=== PATIENT | female | born 1940 | race Caucasian/White ===

== ENCOUNTER 2016-05-19 09:59 | Emergency (ER) | payer MEDICAID ==
[~2016-05-19] VITALS: Ht 157.5 cm; Wt 75.0 kg
[~2016-05-19 09:59] MED LIST: AMLO5TAB88 PO; ASPI-1035 PO; CALC667C PO; FOLI1TAB87 PO; HYDR-4135 PO; IBUP-2029 PO; SIMV5TAB53 PO
[2016-05-19] MEDS ORDERED: LIDOCAINE HCL 1% 20ML VIAL (Pyxis) INJ ONE (10:25)
[2016-05-19 10:44] LABS: BASOPHILS % 0.7 % (0.0-2.0); EOSINOPHILS % 2.4 % (0.0-5.0); HEMATOCRIT. 33.4 % (36.0-48.0); HEMOGLOBIN. 10.5 g/dL (12.0-16.0); LYMPHOCYTES % 13.9 % (20.0-50.0); MEAN CORPUSCULAR HEMOGLOBIN 28.9 pg (28.0-32.0); MEAN CORPUSCULAR HGB CONC 31.3 g/dL (31.0-37.0); MEAN CORPUSCULAR VOLUME 92.2 fL (81.0-99.0); MEAN PLATELET VOLUME 8.1 fl (7.4-10.4); PLATELET 140 x1000/uL (130-400); RED BLOOD CELL COUNT 3.62 mill/uL (4.2-5.4); RED CELL DISTRIBUTION WIDTH 17.2 % (11.6-14.6); WHITE BLOOD COUNT 6.5 x1000/uL (4.5-11.0)
[2016-05-19 10:52] LABS: INDEX HEMOLYSI 1 (1-3); INDEX ICTERIC 1 (1-4); INDEX LIPEMIC 1 (1-3)
[2016-05-19 10:53] LABS: CALCIUM 8.5 mg/dL (8.5-10.1); PARTIAL THROMBOPLASTIN TIME 29.9 sec (24.0-34.0); PROTHROMBIN TIME 10.7 sec
[2016-05-19 10:54] LABS: CHLORIDE 99 mEq/L (98-107)
[2016-05-19 11:05] LABS: ALANINE AMINOTRANSFERASE 15 IU/L (13-61); ALBUMIN 3.3 g/dL (3.4-5.0); ANION GAP 11; CARBON DIOXIDE 34 mEq/L (21-32); UREA NITROGEN BLOOD 24 mg/dL (7-21); eGFR 10 mL/min (>60)
[2016-05-19] MEDS ORDERED: CLONIDINE 0.1MG TABLET PO ONE (12:00)
[2016-05-19 12:48] LABS: BASOPHILS % 0.7 % (0.0-2.0); EOSINOPHILS % 2.3 % (0.0-5.0); HEMOGLOBIN. 10.7 g/dL (12.0-16.0); MEAN CORPUSCULAR HEMOGLOBIN 28.9 pg (28.0-32.0); MEAN CORPUSCULAR HGB CONC 31.5 g/dL (31.0-37.0); MEAN CORPUSCULAR VOLUME 91.6 fL (81.0-99.0); MEAN PLATELET VOLUME 8.2 fl (7.4-10.4); MONOCYTES % 8.9 % (2.0-8.0); NEUTROPHILS % 75.1 % (40.0-76.0); PLATELET 143 x1000/uL (130-400); RED BLOOD CELL COUNT 3.71 mill/uL (4.2-5.4); RED CELL DISTRIBUTION WIDTH 17.1 % (11.6-14.6); WHITE BLOOD COUNT 5.4 x1000/uL (4.5-11.0)
[2016-05-19] MEDS ORDERED: LIDOCAINE HCL/EPINEPHRINE 1%-EPI 1:100,000 20 ML VIAL ONE (13:52)
[2016-05-19 18:52] VITALS: BP 18/64
== END 2016-05-19 18:55 | disposition home or self-care (01) ==
LOC: ER 10:15
DX: T82.838A Hemorrhage due to vascular prosthetic devices, implants and grafts, initial encounter (principal); I12.0 Hypertensive chronic kidney disease with stage 5 chronic kidney disease or end stage renal disease; N18.6 End stage renal disease; I25.10 Atherosclerotic heart disease of native coronary artery without angina pectoris; E11.9 Type 2 diabetes mellitus without complications; M19.90 Unspecified osteoarthritis, unspecified site; I48.91 Unspecified atrial fibrillation; Z79.01 Long term (current) use of anticoagulants; Z99.2 Dependence on renal dialysis; Y84.1 Kidney dialysis as the cause of abnormal reaction of the patient, or of later complication, without mention of misadventure at the time of the procedure; Y92.89 Other specified places as the place of occurrence of the external cause
CPT/HCPCS: 12001; 36415; 80053; 85025; 85610; 85730; 99284; J3490; X7700; Z7610

== ENCOUNTER 2016-08-31 19:54 | Emergency (ER) | payer MEDICAID ==
[~2016-08-31] VITALS: Ht 152.4 cm; Wt 71.0 kg
[~2016-08-31 19:54] MED LIST changes: -ASPI-1035 PO; +ASPI-1158 PO
[2016-08-31] MEDS ORDERED: TRAMADOL 50MG TABLET PO ONE (22:15)
[2016-08-31 23:59] VITALS: BP 164/86
== END 2016-09-01 00:39 | disposition home or self-care (01) ==
LOC: ER 21:34
DX: S80.02XA Contusion of left knee, initial encounter (principal); S50.11XA Contusion of right forearm, initial encounter; S60.212A Contusion of left wrist, initial encounter; S80.12XA Contusion of left lower leg, initial encounter; E11.22 Type 2 diabetes mellitus with diabetic chronic kidney disease; I12.0 Hypertensive chronic kidney disease with stage 5 chronic kidney disease or end stage renal disease; N18.6 End stage renal disease; Z99.2 Dependence on renal dialysis; Z79.82 Long term (current) use of aspirin; W01.0XXA Fall on same level from slipping, tripping and stumbling without subsequent striking against object, initial encounter; Y93.89 Activity, other specified; Y92.018 Other place in single-family (private) house as the place of occurrence of the external cause
CPT/HCPCS: 73552; 73590; 99284; Z7610

== ENCOUNTER 2016-12-01 03:41 | Inpatient (IN) | payer MEDICAID ==
[~2016-12-01] VITALS: Ht 152.4 cm; Wt 71.7 kg
[2016-12-01 04:56] LABS: BASOPHILS % 1.3 % (0.0-2.0); HEMOGLOBIN. 8.9 g/dL (12.0-16.0); LYMPHOCYTES % 14.3 % (20.0-50.0); MEAN CORPUSCULAR HEMOGLOBIN 27.6 pg (28.0-32.0); MEAN CORPUSCULAR VOLUME 89.7 fL (81.0-99.0); MEAN PLATELET VOLUME 8.6 fl (7.4-10.4); MONOCYTES % 7.5 % (2.0-8.0); NEUTROPHILS % 70.9 % (40.0-76.0); PLATELET 161 x1000/uL (130-400); RED BLOOD CELL COUNT 3.23 mill/uL (4.2-5.4); RED CELL DISTRIBUTION WIDTH 19.4 % (11.6-14.6)
[2016-12-01 05:02] LABS: PROTHROMBIN TIME 10.8 sec (9.4-11.6)
[2016-12-01 05:09] LABS: CARBON DIOXIDE 28 mEq/L (21-32); CHLORIDE 101 mEq/L (98-107); TROPONIN I < 0.02 ng/mL (0.00-0.04)
[2016-12-01] MEDS ORDERED: METHYLPREDNISOLONE SOD SUCC 125 MG/2 ML VIAL IV STA (06:18)
[2016-12-01] MEDS ORDERED: ALBUTEROL (0.083%) 2.5MG/3ML NEB HHN STA (06:18)
[2016-12-01] MEDS ORDERED: IPRATROPIUM BROMIDE (0.02%) 0.5MG/2.5ML NEB HHN STA (06:18)
[2016-12-01] MEDS ORDERED: LEVOFLOXACIN 750MG PREMIX 150 ML IV ONE (06:30)
[2016-12-01] MEDS ORDERED: SODIUM POLYSTYRENE SULFONATE 15 G/60 ML BOT PO ONE (06:30)
[2016-12-01] MEDS ORDERED: DEXTROSE 50% WATER 50ML SYRINGE IV ONE (06:30)
[2016-12-01] MEDS ORDERED: INSULIN REGULAR (HUMULIN R) 300UNITS/3ML IV ONE (06:30)
[2016-12-01] MEDS ORDERED: SODIUM BICARBONATE 8.4% 1 MEQ/ML 50ML SYR IV ONE (06:30)
[2016-12-01] MEDS ORDERED: IPRATROPIUM BROMIDE (0.02%) 0.5MG/2.5ML NEB ONE (06:42)
[2016-12-01 09:15] VITALS: BP 188/64
[2016-12-01] MEDS ORDERED: IBUPROFEN 600MG TABLET PO PRN (11:45)
[2016-12-01] MEDS ORDERED: GLIM2TAB2 PO (11:52)
[2016-12-01] MEDS ORDERED: DOCU-138 PO (11:52)
[2016-12-01] MEDS ORDERED: APIX2.5T PO (11:52)
[2016-12-01] MEDS ORDERED: DILT240C91 PO (11:53)
[2016-12-01] MEDS ORDERED: LABE100T PO (11:53)
[2016-12-01] MEDS ORDERED: REN800 PO (11:54)
[2016-12-01 12:00] VITALS: BP 202/67
[2016-12-01] MEDS ORDERED: IPRATROPIUM/ALBUTEROL 0.5-3(2.5)MG/3ML NEB HHN PRN (12:15)
[2016-12-01] MEDS ORDERED: DEXTROSE 50% WATER 50ML SYRINGE IV PRN (12:15)
[2016-12-01] MEDS: BLOOD SUGAR DIAGNOSTIC STRIP TEST SCH ×3 (12:36→20:29)
[2016-12-01] MEDS: INSULIN LISPRO 100 UNITS/ML SUBCUT SCH ×3 (12:40→20:40)
[2016-12-01] MEDS ORDERED: DILTIAZEM HCL 240MG ER (24HR) PO SCH (13:00)
[2016-12-01] MEDS: SEVELAMER CARBONATE 800 MG TABLET PO SCH ×2 (13:07→17:19)
[2016-12-01] MEDS: LABETALOL HCL 200MG TABLET PO SCH (13:08)
[2016-12-01] MEDS: FOLIC ACID/VITAMIN B COMP W-C TABLET PO SCH (13:08)
[2016-12-01] MEDS: CLONIDINE 0.1MG TABLET PO PRN (13:08)
[2016-12-01] MEDS: IPRATROPIUM/ALBUTEROL 0.5-3(2.5)MG/3ML NEB HHN SCH ×2 (15:20→20:15)
[2016-12-01 16:00] VITALS: BP 170/60
[2016-12-01] MEDS: GLIMEPIRIDE 2MG TABLET PO SCH (17:19)
[2016-12-01 20:00] VITALS: BP 146/64
[2016-12-01] MEDS ORDERED: SIMVASTATIN 5 MG PO SCH (21:00)
[2016-12-01] MEDS ORDERED: EPOETIN ALFA 10000UNITS/ML VIAL SUBCUT SCH (21:00)
[2016-12-02] VITALS (7 sets, daily range): BP systolic 146–169; BP diastolic 51–62
[2016-12-02] MEDS: IPRATROPIUM/ALBUTEROL 0.5-3(2.5)MG/3ML NEB HHN SCH ×6 (00:13→20:30)
[2016-12-02] MEDS: APIXABAN 2.5 MG TABLET PO SCH ×3 (01:43→16:41)
[2016-12-02] MEDS: CLONIDINE 0.1MG TABLET PO SCH ×2 (01:43→06:42)
[2016-12-02] MEDS: LABETALOL HCL 200MG TABLET PO SCH ×3 (01:43→09:00)
[2016-12-02] MEDS: INSULIN LISPRO 100 UNITS/ML SUBCUT SCH ×4 (06:41→21:57)
[2016-12-02] MEDS: BLOOD SUGAR DIAGNOSTIC STRIP TEST SCH ×4 (06:42→21:57)
[2016-12-02] MEDS: GLIMEPIRIDE 2MG TABLET PO SCH ×2 (06:42→16:41)
[2016-12-02 07:08] LABS: BASOPHILS % 0.2 % (0.0-2.0); HEMATOCRIT. 29.1 % (36.0-48.0); LYMPHOCYTES % 9.2 % (20.0-50.0); MEAN CORPUSCULAR HEMOGLOBIN 27.5 pg (28.0-32.0); MEAN CORPUSCULAR VOLUME 88.9 fL (81.0-99.0); MEAN PLATELET VOLUME 8.6 fl (7.4-10.4); MONOCYTES % 1.4 % (2.0-8.0); NEUTROPHILS % 89.2 % (40.0-76.0); PLATELET 123 x1000/uL (130-400); RED BLOOD CELL COUNT 3.27 mill/uL (4.2-5.4); RED CELL DISTRIBUTION WIDTH 19.7 % (11.6-14.6)
[2016-12-02] MEDS: FOLIC ACID/VITAMIN B COMP W-C TABLET PO SCH (08:53)
[2016-12-02] MEDS: SEVELAMER CARBONATE 800 MG TABLET PO SCH ×3 (08:54→16:41)
[2016-12-02] MEDS: DILTIAZEM HCL 240MG ER (24HR) PO SCH (08:55)
[2016-12-02] MEDS ORDERED: SODIUM POLYSTYRENE SULFONATE 15 G/60 ML BOT PO SCH (10:00)
[2016-12-02] MEDS: IRON SUCROSE COMPLEX 100 MG/5 ML ML IV SCH (12:19)
[2016-12-02] MEDS: CLONIDINE 0.2MG TABLET PO SCH ×2 (13:54→21:54)
[2016-12-02] MEDS ORDERED: GUAIFENESIN 200MG/10ML SUGAR FREE UDC PO PRN (16:15)
[2016-12-02] MEDS: CLONIDINE 0.1MG TABLET PO PRN (16:41)
[2016-12-03] VITALS (7 sets, daily range): BP systolic 136–188; BP diastolic 60–68
[2016-12-03] MEDS: IPRATROPIUM/ALBUTEROL 0.5-3(2.5)MG/3ML NEB HHN SCH ×6 (00:17→19:50)
[2016-12-03] MEDS: BLOOD SUGAR DIAGNOSTIC STRIP TEST SCH ×3 (05:43→16:20)
[2016-12-03] MEDS: INSULIN LISPRO 100 UNITS/ML SUBCUT SCH ×3 (05:43→16:42)
[2016-12-03] MEDS: GLIMEPIRIDE 2MG TABLET PO SCH ×2 (06:30→17:44)
[2016-12-03] MEDS: CLONIDINE 0.2MG TABLET PO SCH ×2 (06:30→14:00)
[2016-12-03 06:54] LABS: BASOPHILS % 0.6 % (0.0-2.0); HEMATOCRIT. 29.5 % (36.0-48.0); HEMOGLOBIN. 9.2 g/dL (12.0-16.0); LYMPHOCYTES % 14.1 % (20.0-50.0); MEAN CORPUSCULAR HEMOGLOBIN 27.6 pg (28.0-32.0); MEAN CORPUSCULAR VOLUME 88.7 fL (81.0-99.0); MEAN PLATELET VOLUME 8.4 fl (7.4-10.4); MONOCYTES % 5.9 % (2.0-8.0); NEUTROPHILS % 79.4 % (40.0-76.0); PLATELET 124 x1000/uL (130-400); RED BLOOD CELL COUNT 3.32 mill/uL (4.2-5.4); RED CELL DISTRIBUTION WIDTH 19.5 % (11.6-14.6)
[2016-12-03 07:51] LABS: CHLORIDE 95 mEq/L (98-107)
[2016-12-03 08:02] LABS: CARBON DIOXIDE 27 mEq/L (21-32); PHOSPHORUS 7.3 mg/dL (2.5-4.9)
[2016-12-03] MEDS: APIXABAN 2.5 MG TABLET PO SCH ×3 (08:10→18:41)
[2016-12-03] MEDS: FOLIC ACID/VITAMIN B COMP W-C TABLET PO SCH (08:10)
[2016-12-03] MEDS: SEVELAMER CARBONATE 800 MG TABLET PO SCH ×3 (08:10→17:44)
[2016-12-03] MEDS: IRON SUCROSE COMPLEX 100 MG/5 ML ML IV SCH (08:13)
[2016-12-03] MEDS: DILTIAZEM HCL 240MG ER (24HR) PO SCH ×2 (08:14→09:00)
[2016-12-03] MEDS ORDERED: LEVOFLOXACIN 500MG PREMIX 100 ML IV SCH ×2 (09:00→11:00)
[2016-12-03] MEDS: CALCIUM ACETATE 667MG CAPSULE PO SCH ×3 (09:49→17:44)
[2016-12-03] MEDS: CLONIDINE 0.1MG TABLET PO PRN (12:13)
== END 2016-12-03 20:30 | disposition home or self-care (01) | DRG 140 ==
LOC: ER 04:53 → 8WST 06:17 → EDBEDREQ 06:20 → ENRESERV 06:55
PROVIDERS: ADMIT Internal Medicine; ATTEND Internal Medicine
DX: J44.0 Chronic obstructive pulmonary disease with (acute) lower respiratory infection (principal); J96.00 Acute respiratory failure, unspecified whether with hypoxia or hypercapnia; I13.2 Hypertensive heart and chronic kidney disease with heart failure and with stage 5 chronic kidney disease, or end stage renal disease; J18.9 Pneumonia, unspecified organism; N18.6 End stage renal disease; E11.22 Type 2 diabetes mellitus with diabetic chronic kidney disease; I95.9 Hypotension, unspecified; I48.91 Unspecified atrial fibrillation; I50.9 Heart failure, unspecified; R00.1 Bradycardia, unspecified; J44.1 Chronic obstructive pulmonary disease with (acute) exacerbation; Z96.652 Presence of left artificial knee joint; E87.5 Hyperkalemia; D63.8 Anemia in other chronic diseases classified elsewhere; M19.90 Unspecified osteoarthritis, unspecified site; E66.9 Obesity, unspecified; Z79.01 Long term (current) use of anticoagulants; Z79.82 Long term (current) use of aspirin; Z79.84 Long term (current) use of oral hypoglycemic drugs; Z99.2 Dependence on renal dialysis; Z79.899 Other long term (current) drug therapy; Z68.30 Body mass index [BMI] 30.0-30.9, adult
CPT/HCPCS: 36415; 71010; 80048; 80053; 82962; 83540; 83550; 83605; 83735; 83880; 84100; 84484; 85025; 85610; 87040; 87804; 93005; 93306; 94640; 96365; 96375; 99285; J0885; J1815; J1956; J2930; J3490; J7030; J7040; J7611; J7620

== ENCOUNTER 2017-07-14 21:13 | Emergency (ER) | payer MEDICAID ==
[~2017-07-14] VITALS: Ht 165.1 cm; Wt 91.0 kg
[~2017-07-14 21:13] MED LIST changes: +APIX2.5T PO; +DOCU-138 PO; +GLIM2TAB2 PO; +REN800 PO
[2017-07-14] MEDS ORDERED: TRAMADOL 50MG TABLET PO ONE (22:00)
[2017-07-14 22:51] VITALS: BP 120/50
== END 2017-07-14 22:51 | disposition home or self-care (01) ==
LOC: ER 22:08
DX: N99.89 Other postprocedural complications and disorders of genitourinary system (principal); S16.1XXA Strain of muscle, fascia and tendon at neck level, initial encounter; E11.22 Type 2 diabetes mellitus with diabetic chronic kidney disease; I12.0 Hypertensive chronic kidney disease with stage 5 chronic kidney disease or end stage renal disease; N18.6 End stage renal disease; Z99.2 Dependence on renal dialysis; Z79.82 Long term (current) use of aspirin
CPT/HCPCS: 99283

== ENCOUNTER 2019-03-29 13:45 | Inpatient (IN) | payer MEDICAID ==
[~2019-03-29] VITALS: Ht 152.4 cm; Wt 62.2 kg
[~2019-03-29 13:45] MED LIST changes: +CLON0.1T PO; -GLIM2TAB2 PO; +GLIP5TAB12; -IBUP-2029 PO; -SIMV5TAB53 PO; +SIMV5TAB58 PO
[2019-03-29 17:51] LABS: BASOPHILS % 1.1 % (0.0-2.0); EOSINOPHILS % 1.8 % (0.0-5.0); HEMATOCRIT. 39.6 % (36.0-48.0); LYMPHOCYTES % 17.5 % (20.0-50.0); MEAN CORPUSCULAR HEMOGLOBIN 32.9 pg (28.0-32.0); MEAN CORPUSCULAR VOLUME 100.2 fL (81.0-99.0); MONOCYTES % 8.8 % (2.0-8.0); NEUTROPHILS % 70.8 % (40.0-76.0); PLATELET 101 x1000/uL (130-400); RED BLOOD CELL COUNT 3.95 mill/uL (4.2-5.4); RED CELL DISTRIBUTION WIDTH 15.2 % (11.6-14.6)
[2019-03-29 17:53] LABS: CHLORIDE 99 mEq/L (98-107)
[2019-03-29 17:59] LABS: INR 0.9; PARTIAL THROMBOPLASTIN TIME 28.7 sec (23.4-31.0); PROTHROMBIN TIME 9.8 sec (9.6-11.0)
[2019-03-29] MEDS ORDERED: SODIUM POLYSTYRENE SULFONATE 15 G/60 ML BOT PO ONE (18:45)
[2019-03-29] MEDS ORDERED: CALCIUM CHLORIDE 1GM/10ML SYR IV ONE (18:45)
[2019-03-29] MEDS ORDERED: SODIUM BICARBONATE 8.4% 1 MEQ/ML 50ML SYR IV ONE (18:45)
[2019-03-29] MEDS ORDERED: IPRATROPIUM/ALBUTEROL 0.5-3(2.5)MG/3ML NEB HHN PRN (19:30)
[2019-03-29] MEDS ORDERED: DIPHENHYDRAMINE 50MG/ML VIAL IV PRN (19:30)
[2019-03-29] MEDS ORDERED: ONDANSETRON HCL 4MG/2ML INJ IV PRN (19:30)
[2019-03-29 19:40] LABS: PHOSPHORUS 5.2 mg/dL (2.5-4.9)
[2019-03-30 05:30] LABS: BASOPHILS % 1.3 % (0.0-2.0); EOSINOPHILS % 1.8 % (0.0-5.0); HEMATOCRIT. 38.2 % (36.0-48.0); HEMOGLOBIN. 12.3 g/dL (12.0-16.0); LYMPHOCYTES % 22.1 % (20.0-50.0); MEAN CORPUSCULAR HEMOGLOBIN 32.4 pg (28.0-32.0); MEAN CORPUSCULAR VOLUME 100.4 fL (81.0-99.0); MEAN PLATELET VOLUME 10.3 fl (7.4-10.4); MONOCYTES % 9.2 % (2.0-8.0); NEUTROPHILS % 65.6 % (40.0-76.0); PLATELET 95 x1000/uL (130-400); RED BLOOD CELL COUNT 3.81 mill/uL (4.2-5.4); RED CELL DISTRIBUTION WIDTH 14.9 % (11.6-14.6)
[2019-03-30 05:35] LABS: CHLORIDE 99 mEq/L (98-107)
[2019-03-30 05:41] LABS: LDL CHOLESTEROL 40 mg/dL (5-100)
[2019-03-30 05:42] LABS: HDL CHOLESTEROL 56 mg/dL (40-59)
[2019-03-30] MEDS: OMEPRAZOLE 20MG CAPSULE EXTENDED RELEASE PO SCH (10:45)
[2019-03-30] MEDS: CLONIDINE 0.1MG TABLET PO PRN ×2 (11:26→18:05)
[2019-03-30 11:48] LABS: TOTAL IRON BINDING CAPACITY 255 ug/dL (250-450)
[2019-03-30 12:22] LABS: VITAMIN B12 SERUM 1772 pg/mL (211-911)
[2019-03-30 13:19] LABS: FERRITIN 430 ng/mL (10-291)
[2019-03-30 17:00] VITALS: BP 183/59
[2019-03-30] MEDS ORDERED: DILT180T11 MT (17:23)
[2019-03-30] MEDS ORDERED: VALS1TAB75 MT (17:23)
[2019-03-30 17:30] VITALS: BP 183/59
[2019-03-30] MEDS ORDERED: DEXTROSE 50% WATER 50ML SYRINGE IV PRN ×2 (18:34→18:35)
[2019-03-30 19:58] LABS: HEMATOCRIT 36.8 % (36.0-48.0); HEMOGLOBIN 12.1 g/dL (12.0-16.0)
[2019-03-30 20:00] VITALS: BP 146/56
[2019-03-30] MEDS: BLOOD SUGAR DIAGNOSTIC STRIP TEST SCH (20:44)
[2019-03-30] MEDS: INSULIN LISPRO 100 UNITS/ML SUBCUT SCH (22:03)
[2019-03-31] VITALS: BP 101/45
[2019-03-31 04:00] VITALS: BP 135/53
[2019-03-31] MEDS: BLOOD SUGAR DIAGNOSTIC STRIP TEST SCH ×4 (06:30→21:00)
[2019-03-31] MEDS: OMEPRAZOLE 20MG CAPSULE EXTENDED RELEASE PO SCH (06:32)
[2019-03-31 07:26] LABS: BASOPHILS % 0.8 % (0.0-2.0); EOSINOPHILS % 1.8 % (0.0-5.0); HEMATOCRIT. 35.3 % (36.0-48.0); HEMOGLOBIN. 11.7 g/dL (12.0-16.0); LYMPHOCYTES % 12.3 % (20.0-50.0); MEAN CORPUSCULAR VOLUME 99.5 fL (81.0-99.0); MEAN PLATELET VOLUME 9.9 fl (7.4-10.4); MONOCYTES % 10.1 % (2.0-8.0); PLATELET 82 x1000/uL (130-400); RED BLOOD CELL COUNT 3.55 mill/uL (4.2-5.4); RED CELL DISTRIBUTION WIDTH 14.9 % (11.6-14.6)
[2019-03-31] MEDS: INSULIN LISPRO 100 UNITS/ML SUBCUT SCH ×4 (07:50→21:56)
[2019-03-31 09:00] VITALS: BP 141/63
[2019-03-31] MEDS: AMLODIPINE 5MG TABLET PO SCH (09:31)
[2019-03-31] MEDS: FOLIC ACID/VITAMIN B COMP W-C TABLET PO SCH (09:31)
[2019-03-31 12:00] VITALS: BP 153/60
[2019-03-31] MEDS ORDERED: SODIUM BICARBONATE 4% (2.4MEQ) 5ML VIAL IV ONE (12:59)
[2019-03-31] MEDS ORDERED: LIDOCAINE HCL 1% 20ML VIAL (Pyxis) INJ ONE (12:59)
[2019-03-31] MEDS: SEVELAMER CARBONATE 800 MG TABLET PO SCH ×2 (13:48→18:30)
[2019-03-31 16:00] VITALS: BP 155/60
[2019-03-31 18:30] VITALS: BP 181/61
[2019-03-31] MEDS: CLONIDINE 0.1MG TABLET PO PRN (18:39)
[2019-04-01] MEDS: BLOOD SUGAR DIAGNOSTIC STRIP TEST SCH ×4 (06:36→20:35)
[2019-04-01] MEDS: OMEPRAZOLE 20MG CAPSULE EXTENDED RELEASE PO SCH ×2 (07:02→20:35)
[2019-04-01 07:12] LABS: BASOPHILS % 0.8 % (0.0-2.0); EOSINOPHILS % 2.1 % (0.0-5.0); HEMATOCRIT. 34.5 % (36.0-48.0); HEMOGLOBIN. 11.5 g/dL (12.0-16.0); LYMPHOCYTES % 18.9 % (20.0-50.0); MEAN CORPUSCULAR HEMOGLOBIN 32.8 pg (28.0-32.0); MEAN CORPUSCULAR VOLUME 98.6 fL (81.0-99.0); MEAN PLATELET VOLUME 9.9 fl (7.4-10.4); MONOCYTES % 8.9 % (2.0-8.0); NEUTROPHILS % 69.3 % (40.0-76.0); PLATELET 79 x1000/uL (130-400)
[2019-04-01] MEDS: INSULIN LISPRO 100 UNITS/ML SUBCUT SCH ×4 (07:28→20:57)
[2019-04-01 07:58] VITALS: BP 189/58
[2019-04-01] MEDS: FOLIC ACID/VITAMIN B COMP W-C TABLET PO SCH (08:05)
[2019-04-01] MEDS: SEVELAMER CARBONATE 800 MG TABLET PO SCH ×3 (08:05→18:24)
[2019-04-01] MEDS: CLONIDINE 0.1MG TABLET PO PRN (08:05)
[2019-04-01] MEDS: AMLODIPINE 5MG TABLET PO SCH (08:10)
[2019-04-01 09:05] VITALS: BP 138/52
[2019-04-01 12:00] VITALS: BP 150/60
[2019-04-01 16:00] VITALS: BP 134/63
[2019-04-01 20:00] VITALS: BP 140/52
[2019-04-01] MEDS: ACETAMINOPHEN 325MG TABLET PO PRN (20:52)
[2019-04-01] MEDS ORDERED: HYDRALAZINE HCL 25MG TABLET PO SCH (21:00)
[2019-04-01] MEDS ORDERED: HYDRALAZINE HCL 50MG TABLET PO SCH (21:00)
[2019-04-02 00:20] VITALS: BP 138/56
[2019-04-02 04:00] VITALS: BP 139/53
[2019-04-02] MEDS: BLOOD SUGAR DIAGNOSTIC STRIP TEST SCH ×4 (06:03→20:08)
[2019-04-02] MEDS: INSULIN LISPRO 100 UNITS/ML SUBCUT SCH ×4 (06:03→20:17)
[2019-04-02 06:07] LABS: BASOPHILS % 0.9 % (0.0-2.0); EOSINOPHILS % 2.4 % (0.0-5.0); HEMATOCRIT. 36.4 % (36.0-48.0); HEMOGLOBIN. 11.9 g/dL (12.0-16.0); LYMPHOCYTES % 18.2 % (20.0-50.0); MEAN CORPUSCULAR HEMOGLOBIN 32.4 pg (28.0-32.0); MEAN CORPUSCULAR VOLUME 98.8 fL (81.0-99.0); MEAN PLATELET VOLUME 10.2 fl (7.4-10.4); MONOCYTES % 11.5 % (2.0-8.0); PLATELET 85 x1000/uL (130-400); RED BLOOD CELL COUNT 3.69 mill/uL (4.2-5.4); RED CELL DISTRIBUTION WIDTH 14.6 % (11.6-14.6)
[2019-04-02] MEDS: SEVELAMER CARBONATE 800 MG TABLET PO SCH ×3 (06:34→18:29)
[2019-04-02] MEDS: OMEPRAZOLE 20MG CAPSULE EXTENDED RELEASE PO SCH ×2 (06:35→20:07)
[2019-04-02 08:00] VITALS: BP 169/68
[2019-04-02] MEDS: AMLODIPINE 5MG TABLET PO SCH (09:24)
[2019-04-02] MEDS: LOSARTAN POTASSIUM 100 MG TABLET PO SCH (09:24)
[2019-04-02] MEDS: FOLIC ACID/VITAMIN B COMP W-C TABLET PO SCH (09:25)
[2019-04-02 12:01] VITALS: BP 115/46
[2019-04-02 16:00] VITALS: BP 135/57
[2019-04-02 20:00] VITALS: BP 166/61
[2019-04-02] MEDS: ACETAMINOPHEN 325MG TABLET PO PRN (20:07)
[2019-04-02] MEDS: CLONIDINE 0.1MG TABLET PO PRN (20:07)
[2019-04-03 00:24] VITALS: BP 136/51
[2019-04-03 04:00] VITALS: BP 148/66
[2019-04-03] MEDS: INSULIN LISPRO 100 UNITS/ML SUBCUT SCH ×4 (06:23→20:54)
[2019-04-03] MEDS: BLOOD SUGAR DIAGNOSTIC STRIP TEST SCH ×4 (06:23→20:54)
[2019-04-03] MEDS: OMEPRAZOLE 20MG CAPSULE EXTENDED RELEASE PO SCH ×2 (06:41→20:50)
[2019-04-03] MEDS: SEVELAMER CARBONATE 800 MG TABLET PO SCH ×3 (06:41→18:36)
[2019-04-03 06:51] LABS: BASOPHILS % 0.7 % (0.0-2.0); EOSINOPHILS % 2.6 % (0.0-5.0); HEMATOCRIT. 35.1 % (36.0-48.0); HEMOGLOBIN. 11.6 g/dL (12.0-16.0); LYMPHOCYTES % 20.6 % (20.0-50.0); MEAN CORPUSCULAR HEMOGLOBIN 32.6 pg (28.0-32.0); MEAN CORPUSCULAR VOLUME 98.9 fL (81.0-99.0); MEAN PLATELET VOLUME 10.1 fl (7.4-10.4); MONOCYTES % 10.8 % (2.0-8.0); NEUTROPHILS % 65.3 % (40.0-76.0); PLATELET 80 x1000/uL (130-400); RED BLOOD CELL COUNT 3.55 mill/uL (4.2-5.4); RED CELL DISTRIBUTION WIDTH 14.6 % (11.6-14.6)
[2019-04-03 08:00] VITALS: BP 183/62
[2019-04-03] MEDS: LOSARTAN POTASSIUM 100 MG TABLET PO SCH (08:55)
[2019-04-03] MEDS: AMLODIPINE 5MG TABLET PO SCH (08:55)
[2019-04-03] MEDS: FOLIC ACID/VITAMIN B COMP W-C TABLET PO SCH (08:56)
[2019-04-03 12:00] VITALS: BP 145/65
[2019-04-03 16:00] VITALS: BP 178/66
[2019-04-03] MEDS ORDERED: SORBITOL 70% SOLN 30ML PO SCH ×2 (16:00→20:00)
[2019-04-03 17:08] LABS: CREATINE KINASE 24 IU/L (26-192)
[2019-04-03 17:11] LABS: CREATINE KINASE MB FRACTION 1.2 ng/mL (0.5-3.6)
[2019-04-03 17:13] LABS: T4 FREE 1.17 ng/dL (0.76-1.46)
[2019-04-03 20:43] VITALS: BP 133/62
[2019-04-03] MEDS: ACETAMINOPHEN 325MG TABLET PO PRN (22:34)
[2019-04-04 00:52] VITALS: BP 128/65
[2019-04-04 01:27] LABS: CREATINE KINASE 31 IU/L (26-192)
[2019-04-04 01:30] LABS: CREATINE KINASE MB FRACTION 1.3 ng/mL (0.5-3.6)
[2019-04-04 04:00] VITALS: BP 159/74
[2019-04-04] MEDS: BLOOD SUGAR DIAGNOSTIC STRIP TEST SCH ×4 (07:06→21:00)
[2019-04-04] MEDS: OMEPRAZOLE 20MG CAPSULE EXTENDED RELEASE PO SCH ×2 (07:06→22:08)
[2019-04-04 07:16] LABS: BASOPHILS % 0.7 % (0.0-2.0); EOSINOPHILS % 1.3 % (0.0-5.0); HEMATOCRIT. 37.7 % (36.0-48.0); HEMOGLOBIN. 12.7 g/dL (12.0-16.0); LYMPHOCYTES % 9.2 % (20.0-50.0); MEAN CORPUSCULAR HEMOGLOBIN 33.5 pg (28.0-32.0); MEAN CORPUSCULAR VOLUME 99.3 fL (81.0-99.0); MEAN PLATELET VOLUME 10.2 fl (7.4-10.4); MONOCYTES % 8.9 % (2.0-8.0); NEUTROPHILS % 79.9 % (40.0-76.0); PLATELET 95 x1000/uL (130-400); RED CELL DISTRIBUTION WIDTH 14.6 % (11.6-14.6)
[2019-04-04 07:30] LABS: CHLORIDE 111 mEq/L (98-107)
[2019-04-04] MEDS: INSULIN LISPRO 100 UNITS/ML SUBCUT SCH ×4 (07:35→22:15)
[2019-04-04] MEDS: SEVELAMER CARBONATE 800 MG TABLET PO SCH ×3 (07:35→18:35)
[2019-04-04 07:40] LABS: CREATINE KINASE 45 IU/L (26-192)
[2019-04-04 07:42] LABS: CREATINE KINASE MB FRACTION 1.1 ng/mL (0.5-3.6)
[2019-04-04 08:00] VITALS: BP 166/66
[2019-04-04] MEDS ORDERED: NA PHOS,M-B/NA PHOS,DI-BA ENEMA 118ML PR SCH ×2 (09:30→12:30)
[2019-04-04] MEDS: FOLIC ACID/VITAMIN B COMP W-C TABLET PO SCH (09:40)
[2019-04-04] MEDS: LOSARTAN POTASSIUM 100 MG TABLET PO SCH (09:40)
[2019-04-04] MEDS: AMLODIPINE 5MG TABLET PO SCH (09:40)
[2019-04-04] MEDS: ACETAMINOPHEN 325MG TABLET PO PRN ×2 (09:49→22:08)
[2019-04-04 12:00] VITALS: BP 136/54
[2019-04-04] MEDS ORDERED: HYDRALAZINE 20MG/ML VIAL IV PRN (12:45)
[2019-04-04] MEDS ORDERED: SIMETHICONE 40 MG/0.6 ML 30ML ONE (16:07)
[2019-04-04] MEDS ORDERED: MIDAZOLAM HCL 5 MG/5 ML VIAL ONE (16:07)
[2019-04-04] MEDS ORDERED: FENTANYL CITRATE/PF 50MCG/ML 2ML VIAL ONE (16:08)
[2019-04-04] MEDS ORDERED: FENTANYL CITRATE/PF 50MCG/ML 2ML VIAL IV PRN (16:23)
[2019-04-04] MEDS ORDERED: MIDAZOLAM HCL 5 MG/5 ML VIAL IV PRN (16:24)
[2019-04-04 18:19] VITALS: BP 145/61
[2019-04-04 20:00] VITALS: BP 149/60
[2019-04-05 00:39] VITALS: BP 144/62
[2019-04-05 04:00] VITALS: BP 120/50
[2019-04-05] MEDS: BLOOD SUGAR DIAGNOSTIC STRIP TEST SCH ×2 (06:34→12:11)
[2019-04-05] MEDS: OMEPRAZOLE 20MG CAPSULE EXTENDED RELEASE PO SCH (06:34)
[2019-04-05 08:00] VITALS: BP 154/60
[2019-04-05] MEDS: AMLODIPINE 5MG TABLET PO SCH (08:29)
[2019-04-05] MEDS: SEVELAMER CARBONATE 800 MG TABLET PO SCH ×2 (08:29→13:29)
[2019-04-05] MEDS: LOSARTAN POTASSIUM 100 MG TABLET PO SCH (08:29)
[2019-04-05] MEDS: FOLIC ACID/VITAMIN B COMP W-C TABLET PO SCH (08:29)
[2019-04-05] MEDS: INSULIN LISPRO 100 UNITS/ML SUBCUT SCH ×2 (08:34→13:26)
[2019-04-05 12:00] VITALS: BP 155/55
[2019-04-05] MEDS ORDERED: SEVE800T8 PO (12:18)
[2019-04-05] MEDS ORDERED: APIX2.5T PO (12:18)
[2019-04-05] MEDS ORDERED: OMEP20CA14 PO (12:18)
[2019-04-05 12:19] VITALS: BP 155/55
[2019-04-28] MEDS ORDERED: LOSA100T32 PO (18:26)
== END 2019-04-05 15:30 | disposition home or self-care (01) | DRG 253 ==
LOC: ER 13:45 → 6WST 18:55 → EDBEDREQ 18:58 → CANRESERV 03-30 12:34 → ENRESERV 03-30 12:34
PROVIDERS: ADMIT Internal Medicine; ATTEND Internal Medicine
PROC: 5A1D70Z Performance of Urinary Filtration, Intermittent, Less than 6 Hours Per Day (ICD-10-PCS; 2019-03-30)
PROC: 5A1D70Z Performance of Urinary Filtration, Intermittent, Less than 6 Hours Per Day (ICD-10-PCS; 2019-03-31)
PROC: 5A1D70Z Performance of Urinary Filtration, Intermittent, Less than 6 Hours Per Day (ICD-10-PCS; 2019-04-03)
PROC: 0DBH8ZZ Excision of Cecum, Via Natural or Artificial Opening Endoscopic (ICD-10-PCS; principal; 2019-04-04)
DX: K92.2 Gastrointestinal hemorrhage, unspecified (principal); I13.2 Hypertensive heart and chronic kidney disease with heart failure and with stage 5 chronic kidney disease, or end stage renal disease; I47.2 Ventricular tachycardia; K63.3 Ulcer of intestine; E11.22 Type 2 diabetes mellitus with diabetic chronic kidney disease; N18.6 End stage renal disease; I48.91 Unspecified atrial fibrillation; E87.5 Hyperkalemia; K92.1 Melena; K55.20 Angiodysplasia of colon without hemorrhage; E83.39 Other disorders of phosphorus metabolism; K64.8 Other hemorrhoids; E83.41 Hypermagnesemia; K64.9 Unspecified hemorrhoids; D63.1 Anemia in chronic kidney disease; Z96.659 Presence of unspecified artificial knee joint; N25.81 Secondary hyperparathyroidism of renal origin; E87.1 Hypo-osmolality and hyponatremia; M19.90 Unspecified osteoarthritis, unspecified site; N20.0 Calculus of kidney; I50.32 Chronic diastolic (congestive) heart failure; E78.5 Hyperlipidemia, unspecified; D12.0 Benign neoplasm of cecum; N28.1 Cyst of kidney, acquired; Z79.899 Other long term (current) drug therapy; Z79.82 Long term (current) use of aspirin; Z99.2 Dependence on renal dialysis; Z79.01 Long term (current) use of anticoagulants
CPT/HCPCS: 36415; 71045; 74176; 80048; 80053; 80061; 82270; 82550; 82553; 82607; 82728; 82962; 83540; 83550; 83735; 83880; 84100; 84439; 84443; 84484; 85014; 85018; 85025; 86850; 86900; 88305; 93005; 93306; 93970; 96372; 96374; 96375; 99285; J1642; J1815; J2250; J3010; J3490

== ENCOUNTER 2019-05-11 19:54 | Inpatient (IN) | payer MEDICAID ==
[~2019-05-11] VITALS: Ht 162.6 cm; Wt 72.6 kg
[~2019-05-11 19:54] MED LIST changes: -AMLO5TAB88 PO; -ASPI-1158 PO; +DILT180T11 MT; -HYDR-4135 PO; +LOSA100T32 PO; +OMEP20CA14 PO; -REN800 PO; +SEVE800T8 PO; +VALS1TAB75 MT
[2019-05-11] MEDS ORDERED: SODIUM CHLORIDE 0.9% 1,000 ML IV ONE (20:16)
[2019-05-11 21:45] LABS: BASOPHILS % 0.6 % (0.0-2.0); EOSINOPHILS % 3.2 % (0.0-5.0); HEMATOCRIT. 25.2 % (36.0-48.0); HEMOGLOBIN. 8.3 g/dL (12.0-16.0); LYMPHOCYTES % 9.9 % (20.0-50.0); MEAN CORPUSCULAR VOLUME 100.4 fL (81.0-99.0); MEAN PLATELET VOLUME 8.7 fl (7.4-10.4); MONOCYTES % 9.2 % (2.0-8.0); NEUTROPHILS % 77.1 % (40.0-76.0); PLATELET 110 x1000/uL (130-400); RED BLOOD CELL COUNT 2.51 mill/uL (4.2-5.4); RED CELL DISTRIBUTION WIDTH 18.6 % (11.6-14.6)
[2019-05-11 21:54] LABS: INR 0.9
[2019-05-11 21:55] LABS: CHLORIDE 94 mEq/L (98-107)
[2019-05-11] MEDS ORDERED: ONDANSETRON HCL 4MG/2ML INJ IV PRN (23:00)
[2019-05-12] VITALS (7 sets, daily range): BP systolic 136–189; BP diastolic 51–74
[2019-05-12] MEDS: HYDRALAZINE 20MG/ML VIAL IV SCH ×5 (00:29→23:28)
[2019-05-12 05:31] LABS: BASOPHILS % 0.9 % (0.0-2.0); EOSINOPHILS % 4.1 % (0.0-5.0); HEMOGLOBIN. 7.6 g/dL (12.0-16.0); LYMPHOCYTES % 11.8 % (20.0-50.0); MEAN CORPUSCULAR HEMOGLOBIN 33.1 pg (28.0-32.0); MEAN CORPUSCULAR VOLUME 100.5 fL (81.0-99.0); MEAN PLATELET VOLUME 9.4 fl (7.4-10.4); MONOCYTES % 8.3 % (2.0-8.0); NEUTROPHILS % 74.9 % (40.0-76.0); PLATELET 117 x1000/uL (130-400); RED BLOOD CELL COUNT 2.29 mill/uL (4.2-5.4); RED CELL DISTRIBUTION WIDTH 17.9 % (11.6-14.6)
[2019-05-12] MEDS: PANTOPRAZOLE SODIUM 40 MG/VIAL IV SCH ×2 (09:09→17:10)
[2019-05-12] MEDS: MORPHINE SULFATE 2 MG/ML CPJ (NOT FOR IM USE) IV PRN (18:42)
[2019-05-12] MEDS: INSULIN LISPRO 100 UNITS/ML SUBCUT SCH (21:00)
[2019-05-12] MEDS ORDERED: DEXTROSE 50% WATER 50ML SYRINGE IV PRN (21:00)
[2019-05-12] MEDS: CLONIDINE 0.1MG TABLET PO PRN (21:09)
[2019-05-12] MEDS: BLOOD SUGAR DIAGNOSTIC STRIP TEST SCH (21:34)
[2019-05-13] VITALS (12 sets, daily range): BP systolic 126–194; BP diastolic 49–110
[2019-05-13] MEDS: CLONIDINE 0.1MG TABLET PO PRN (02:47)
[2019-05-13] MEDS: HYDRALAZINE 20MG/ML VIAL IV SCH (05:07)
[2019-05-13 07:43] LABS: BASOPHILS % 0.3 % (0.0-2.0); EOSINOPHILS % 1.9 % (0.0-5.0); HEMATOCRIT. 24.6 % (36.0-48.0); HEMOGLOBIN. 8.1 g/dL (12.0-16.0); LYMPHOCYTES % 10.9 % (20.0-50.0); MEAN CORPUSCULAR HEMOGLOBIN 33.3 pg (28.0-32.0); MEAN CORPUSCULAR VOLUME 101.1 fL (81.0-99.0); MEAN PLATELET VOLUME 9.7 fl (7.4-10.4); MONOCYTES % 9.8 % (2.0-8.0); NEUTROPHILS % 77.1 % (40.0-76.0); PLATELET 163 x1000/uL (130-400); RED BLOOD CELL COUNT 2.44 mill/uL (4.2-5.4); RED CELL DISTRIBUTION WIDTH 18.2 % (11.6-14.6)
[2019-05-13] MEDS: BLOOD SUGAR DIAGNOSTIC STRIP TEST SCH ×4 (08:25→21:44)
[2019-05-13] MEDS: INSULIN LISPRO 100 UNITS/ML SUBCUT SCH ×3 (08:33→21:00)
[2019-05-13 08:37] LABS: CHLORIDE 98 mEq/L (98-107)
[2019-05-13] MEDS: PANTOPRAZOLE SODIUM 40 MG/VIAL IV SCH ×2 (09:01→17:00)
[2019-05-13] MEDS: LOSARTAN POTASSIUM 100 MG TABLET PO SCH (12:58)
[2019-05-13] MEDS: DILTIAZEM HCL 180MG CAPSULE CD 24HR PO SCH (12:58)
[2019-05-13 13:28] LABS: TOTAL IRON BINDING CAPACITY 311 ug/dL (250-450)
[2019-05-13 16:16] LABS: HEMATOCRIT 25.6 % (36.0-48.0); HEMOGLOBIN 8.4 g/dL (12.0-16.0)
[2019-05-13] MEDS: CALCIUM ACETATE 667 MG TABLET PO SCH (17:15)
[2019-05-13] MEDS ORDERED: EPOETIN ALFA 10000UNITS/ML VIAL SUBCUT SCH (21:00)
[2019-05-13] MEDS: MORPHINE SULFATE 2 MG/ML CPJ (NOT FOR IM USE) IV PRN (21:21)
[2019-05-13] MEDS: CLONIDINE 0.2MG TABLET PO SCH (21:46)
[2019-05-14] VITALS (12 sets, daily range): BP systolic 111–152; BP diastolic 49–68
[2019-05-14 00:41] LABS: HEMATOCRIT 25.3 % (36.0-48.0); HEMOGLOBIN 8.3 g/dL (12.0-16.0)
[2019-05-14 05:57] LABS: HEMOGLOBIN. 7.2 g/dL (12.0-16.0); MEAN CORPUSCULAR HEMOGLOBIN 32.8 pg (28.0-32.0); MEAN CORPUSCULAR VOLUME 100.2 fL (81.0-99.0); MEAN PLATELET VOLUME 8.8 fl (7.4-10.4); PLATELET 116 x1000/uL (130-400); RED BLOOD CELL COUNT 2.19 mill/uL (4.2-5.4); RED CELL DISTRIBUTION WIDTH 17.5 % (11.6-14.6)
[2019-05-14] MEDS: BLOOD SUGAR DIAGNOSTIC STRIP TEST SCH ×4 (07:30→20:47)
[2019-05-14] MEDS: INSULIN LISPRO 100 UNITS/ML SUBCUT SCH ×4 (08:00→20:48)
[2019-05-14] MEDS: CLONIDINE 0.2MG TABLET PO SCH ×2 (08:50→20:47)
[2019-05-14] MEDS: PANTOPRAZOLE SODIUM 40 MG/VIAL IV SCH ×2 (08:50→18:01)
[2019-05-14] MEDS: FOLIC ACID/VITAMIN B COMP W-C TABLET PO SCH (08:50)
[2019-05-14] MEDS: CALCIUM ACETATE 667 MG TABLET PO SCH ×3 (08:50→18:01)
[2019-05-14] MEDS: DILTIAZEM HCL 180MG CAPSULE CD 24HR PO SCH (08:50)
[2019-05-14] MEDS: LOSARTAN POTASSIUM 100 MG TABLET PO SCH (08:50)
[2019-05-14 13:11] LABS: HEMATOCRIT 22.9 % (36.0-48.0); HEMOGLOBIN 7.5 g/dL (12.0-16.0)
[2019-05-14] MEDS: IRON SUCROSE COMPLEX 100 MG/5 ML ML IV SCH (14:01)
[2019-05-14] MEDS: MORPHINE SULFATE 2 MG/ML CPJ (NOT FOR IM USE) IV PRN (20:47)
[2019-05-14 22:29] LABS: PLATELET ESTIMATE DECREASED
[2019-05-15] VITALS (11 sets, daily range): BP systolic 117–155; BP diastolic 44–65
[2019-05-15 06:05] LABS: BASOPHILS % 0.7 % (0.0-2.0); HEMATOCRIT. 23.1 % (36.0-48.0); HEMOGLOBIN. 7.4 g/dL (12.0-16.0); LYMPHOCYTES % 12.5 % (20.0-50.0); MEAN CORPUSCULAR HEMOGLOBIN 32.3 pg (28.0-32.0); MEAN CORPUSCULAR VOLUME 100.1 fL (81.0-99.0); MEAN PLATELET VOLUME 9.5 fl (7.4-10.4); NEUTROPHILS % 71.8 % (40.0-76.0); PLATELET 116 x1000/uL (130-400); RED CELL DISTRIBUTION WIDTH 17.4 % (11.6-14.6)
[2019-05-15 06:25] LABS: PHOSPHORUS 4.1 mg/dL (2.5-4.9)
[2019-05-15 07:18] LABS: FOLIC ACID (FOLATE) SERUM > 20.00 ng/mL (>5.38)
[2019-05-15] MEDS: BLOOD SUGAR DIAGNOSTIC STRIP TEST SCH ×3 (07:36→18:06)
[2019-05-15] MEDS: INSULIN LISPRO 100 UNITS/ML SUBCUT SCH ×3 (07:37→18:11)
[2019-05-15] MEDS: IRON SUCROSE COMPLEX 100 MG/5 ML ML IV SCH ×2 (09:00→09:38)
[2019-05-15] MEDS: LOSARTAN POTASSIUM 100 MG TABLET PO SCH (09:38)
[2019-05-15] MEDS: FOLIC ACID/VITAMIN B COMP W-C TABLET PO SCH (09:38)
[2019-05-15] MEDS: PANTOPRAZOLE SODIUM 40 MG/VIAL IV SCH ×2 (09:39→17:51)
[2019-05-15] MEDS: DILTIAZEM HCL 180MG CAPSULE CD 24HR PO SCH (09:39)
[2019-05-15] MEDS: CLONIDINE 0.2MG TABLET PO SCH (09:39)
[2019-05-15] MEDS: CALCIUM ACETATE 667 MG TABLET PO SCH ×3 (09:59→17:51)
[2019-05-15] MEDS ORDERED: PANT40TA4 MT (15:13)
[2019-05-15] MEDS ORDERED: AMIO100T4 PO (16:55)
[2019-05-15] MEDS ORDERED: AMIODARONE HCL 200 MG TABLET PO SCH (17:30)
[2019-05-15] MEDS: MORPHINE SULFATE 2 MG/ML CPJ (NOT FOR IM USE) IV PRN (17:53)
== END 2019-05-15 23:37 | disposition home or self-care (01) | DRG 253 ==
LOC: ER 19:54 → 5EST 21:46 → EDBEDREQTM 21:52 → EDBEDREQ 21:52 → EDBEDREQSVC 05-12 09:29 → ENRESERV 05-12 10:41
PROVIDERS: ADMIT Internal Medicine; ATTEND Internal Medicine
PROC: 5A1D70Z Performance of Urinary Filtration, Intermittent, Less than 6 Hours Per Day (ICD-10-PCS; principal; 2019-05-13)
DX: K92.2 Gastrointestinal hemorrhage, unspecified (principal); E46 Unspecified protein-calorie malnutrition; D68.9 Coagulation defect, unspecified; D69.6 Thrombocytopenia, unspecified; I12.0 Hypertensive chronic kidney disease with stage 5 chronic kidney disease or end stage renal disease; E11.22 Type 2 diabetes mellitus with diabetic chronic kidney disease; E87.1 Hypo-osmolality and hyponatremia; N18.6 End stage renal disease; D53.9 Nutritional anemia, unspecified; K55.21 Angiodysplasia of colon with hemorrhage; D62 Acute posthemorrhagic anemia; K63.5 Polyp of colon; K64.8 Other hemorrhoids; E87.5 Hyperkalemia; I48.0 Paroxysmal atrial fibrillation; Z96.659 Presence of unspecified artificial knee joint; D63.1 Anemia in chronic kidney disease; K21.9 Gastro-esophageal reflux disease without esophagitis; D72.821 Monocytosis (symptomatic); E78.5 Hyperlipidemia, unspecified; Z99.2 Dependence on renal dialysis; Z79.01 Long term (current) use of anticoagulants; Q27.30 Arteriovenous malformation, site unspecified; Z87.19 Personal history of other diseases of the digestive system; Z86.73 Personal history of transient ischemic attack (TIA), and cerebral infarction without residual deficits; Z79.899 Other long term (current) drug therapy; Z79.84 Long term (current) use of oral hypoglycemic drugs; Z68.27 Body mass index [BMI] 27.0-27.9, adult
CPT/HCPCS: 36415; 71045; 80048; 80053; 82270; 82728; 82746; 82962; 83540; 83550; 84100; 85014; 85018; 85025; 86850; 86900; 93005; 97162; 99291; C9113; J0360; J0885; J1815; J2270; J7030